=== PATIENT | male | born 1965 | race Caucasian/White ===

== ENCOUNTER 2018-03-24 09:47 | Day surgery (SDC) | payer OTHER ==
[2018-03-22 09:05] VITALS: BMI 39.0
[~2018-03-24] VITALS: Ht 180.3 cm; Wt 129.1 kg
[~2018-03-24 09:47] MED LIST: ALPR-411 PO; ALPR1TAB3 PO; AMLO5TAB3 PO; APPLTAB PO; ATOR10TA82 PO; BENA-4 PO; BENZ0.5T2 PO; BUPR100T8 PO; CEFAZOLIN 2000MG IV PUSH 15 ML IV SCH; CITA20TA4 PO; DEXAMETHASONE SOD INJ 4 MG/ML VIAL ONE; EMPA1TAB PO; EpHEDrine SULFATE 50MG/5ML SYR ONE; FENTANYL CITRATE INJ 50 MCG/1 ML 2 ML VIAL ONE; HYDR25CA PO; LACTATED RINGER'S 1000ML 1,000 ML IV SCH; LIDOCAINE HCL 2% 2 ML VIAL (20MG/ML) ONE; METF-384 PO; MIDAZOLAM HCL 1 MG/ML 2ML VIAL ONE; MULT-506 PO; ONDANSETRON INJ 2 MG/ML 2 ML VIAL ONE; PHENYLEPHRINE 100MCG/ML 5ML SYR ONE; PROPOFOL IV EMULSION 10 MG/ML 20 ML VIAL ONE; SITA100T3 PO; ZIPR20CA PO; ZIPR60CA PO
[2018-03-24 10:55] VITALS: BP 145/85; PULSE 74; TEMP 36.6; O2SAT 95; Ht 180.3 cm; Wt 129.1 kg
--- NOTE | 2018-03-24 12:17 | History & Physical Bridge Note ---
H&P Re-Evaluation Bridge Note: I have examined the patient, reviewed the History & Physical and in the interval since the performance of the History & Physical I have noted the following changes of clinical significance: No changes noted
[2018-03-24] MEDS ORDERED: BUPIVACAINE 0.25% 30 ML VIAL ONE (12:18)
[2018-03-24] MEDS ORDERED: GLYCOPYRROLATE INJ 0.2 MG/ML VIAL ONE (13:16)
[2018-03-24] MEDS ORDERED: ROCURONIUM BROMIDE 10 MG/ML 5 ML VIAL ONE (13:16)
[2018-03-24] MEDS ORDERED: NEOSTIGMINE METHYLSULFATE 5 MG/5 ML SYR ONE (13:16)
[2018-03-24] MEDS ORDERED: KETOROLAC TROMETHAMINE 30 MG/ML VIAL ONE (13:16)
--- NOTE | 2018-03-24 13:58 | [facility] Post Operative Brief Note ---
Immediate Operative Summary Operative Date Mar 24, 2018. Pre-Operative Diagnosis Testicular Mass, Left side Post-Operative Diagnosis Left Testicular mass Procedure(s) Performed Left Radical Orchiectomy, Inguinal approach Surgeon Dr. Augustin Schroeder Control Engineer Surgeon(s) none Estimated Blood Loss 10mL Findings Consistent with Post-Op Diagnosis Fluids (cc crystalloids) 1200 cc Specimens A. Left testicle and cord Drains None Anesthesia Type General Complication(s) none Disposition Accompanied Pt To Recover: yes Disposition: Recovery Room / PACU
[2018-03-24] MEDS ORDERED: CEPH500C2 PO (14:06)
[2018-03-24] MEDS ORDERED: DOCU100C31 PO (14:06)
[2018-03-24] MEDS ORDERED: OXYC-57 PO (14:06)
--- NOTE | 2018-03-24 14:07 | Discharge Instructions ---
Discharge Instructions Date of Service Mar 24, 2018. Admission Reason for Admission: Left Testicular Mass Discharge Discharge Diagnosis / Problem: Left testicular mass s/p left radical orchiectomy Discharge Goals Goal(s): Improve disease control, Diagnostic testing, Therapeutic intervention Activity Recommendations Activity Limitations: as noted below Lifting Limitations: no more than 25 pounds (x 2 weeks) Exercise/Sports Limitations: rest today, gradually increase as tolerated (x 2- 3 weeks) Shower/Bathe: tomorrow (no tub bath x 1 week) Driving or Machine Use: resume 1 day after discharge . Instructions / Follow-Up Instructions / Follow-Up As scheduled in office for pathology review Current Hospital Diet Patient's current hospital diet: Discharge Diet Recommended Diet: Regular Diet Procedures Procedures Performed: Left Radical Orchiectomy, Inguinal approach Pending Studies Studies pending at discharge: yes List of pending studies: Pathology report Medical Emergencies . Who to Call and When: Medical Emergencies: If at any time you feel your situation is an emergency, please call 911 immediately. . Non-Emergent Contact Non-Emergency issues call your: Urologist Call Non-Emergent contact if: you have a fever, temperature is above 101, your pain is not controlled, your pain is worsening, your pain is unusual for you, your pain is concerning you, you have any medication questions . . "Provider Documentation" section prepared by Augustin Schroeder. . [place] Drug Monitoring Program Search Results: patient reviewed within database, no issues identified
[2018-03-24] MEDS ORDERED: ATROPINE SULFATE 0.1 MG/ML 5ML SYR IV PRN (14:15)
[2018-03-24] MEDS ORDERED: OXYCODONE/ACETAMINOPHEN 5-325 TAB PO PRN ×2 (14:15)
[2018-03-24] MEDS ORDERED: FENTANYL CITRATE INJ 50 MCG/1 ML 2 ML VIAL IV PRN (14:15)
[2018-03-24] MEDS ORDERED: ONDANSETRON INJ 2 MG/ML 2 ML VIAL IV PRN (14:15)
[2018-03-24] MEDS ORDERED: LABETALOL HCL IV 5 MG/ML 20ML IV PRN (14:15)
[2018-03-24 14:48] VITALS: BP 158/92; PULSE 68; TEMP 37; O2SAT 96
--- NOTE | 2018-03-24 15:02 | Anesthesiology Progress Note ---
Anesthesia Post Op Note Date & Time Mar 24, 2018 at 15:02 Vital Signs Pain Intensity: 2 Vital Signs Past 12 Hours Date Time Temp Pulse Resp B/P (MAP) Pulse Ox O2 Delivery O2 Flow Rate FiO2 03/24/18 14:38 69 15 03/24/18 14:38 68 15 93 03/24/18 14:37 153/92 03/24/18 14:34 37.0 67 16 153/92 (107) 99 Room Air Oxymask 03/24/18 14:33 68 14 03/24/18 14:33 67 14 94 03/24/18 14:32 150/89 03/24/18 14:30 70 17 03/24/18 14:30 70 17 94 03/24/18 14:29 69 17 91 03/24/18 14:29 68 17 03/24/18 14:27 152/80 03/24/18 14:24 74 17 03/24/18 14:24 74 17 96 03/24/18 14:23 73 17 03/24/18 14:23 73 17 94 03/24/18 14:22 76 23 03/24/18 14:22 75 23 160/75 95 03/24/18 14:17 77 27 141/89 99 03/24/18 14:17 77 27 03/24/18 14:13 143/ 03/24/18 14:12 80 31 03/24/18 14:12 80 31 99 03/24/18 14:10 139/104 03/24/18 14:07 83 18 135/112 100 03/24/18 14:07 83 18 03/24/18 14:04 168/79 03/24/18 14:02 36.9 87 16 168/79 (97) 99 Oxymask 10 03/24/18 14:02 77 13 03/24/18 14:02 13 03/24/18 10:55 36.6 74 18 145/85 (105) 95 Room Air Notes Mental Status: alert / awake / arousable, participated in evaluation Pt Amnestic to Procedure: Yes Nausea / Vomiting: adequately controlled Pain: adequately controlled Airway Patency, RR, SpO2: stable & adequate BP & HR: stable & adequate Hydration State: stable & adequate Anesthetic Complications: no major complications apparent
[2018-03-24 15:20] VITALS: BP 167/87; PULSE 63; TEMP 36.9; O2SAT 100
--- NOTE | 2018-03-24 19:00 | OPERATIVE REPORT ---
DATE OF OPERATION: 03/24/2018 PREOPERATIVE DIAGNOSIS: Left-sided vascular intratesticular mass. POSTOPERATIVE DIAGNOSIS: Left-sided vascular intratesticular mass. PROCEDURE: Left-sided radical orchiectomy with inguinal approach. SURGEON: Augustin Schroeder M.D. GAS SUBSTATION OPERATOR: None. ANESTHESIA: General anesthesia with endotracheal intubation plus local. COMPLICATIONS: None. ESTIMATED BLOOD LOSS: 10 mL. IV FLUIDS: 1200 mL crystalloid. DRAINS LEFT IN PLACE: None. SPECIMENS SENT TO PATHOLOGY: Left testis plus cord. FINDINGS: Solid intratesticular mass removed intact. No scrotal skin perforation, excellent hemostasis. BRIEF HISTORY: Mr. Lynn is a pleasant 52-year-old male who has been seen as an outpatient acutely for a new and growing left-sided palpable testicular mass found to be solid and intratesticular on scrotal ultrasound. Please see H and P for further details. This finding is quite suspicious for testicular malignancy and is here today for radical orchiectomy. Intravenous cephalosporins are provided for antibiotic coverage and SCDs used for DVT prophylaxis throughout the case. DESCRIPTION OF PROCEDURE: The patient was properly identified and brought into the operative suite after identification of appropriate consent on the chart. General anesthesia with endotracheal intubation was initiated and the patient was prepped and draped in the standard fashion for this procedure. multimedia manager-out procedure was followed. The patient was placed in some Trendelenburg due to his body habitus and the incision was made over the inguinal canal on the left hand side after initiation of local anesthesia at the skin level. This was brought down through the subcutaneous fat and Elena's fascia with fascia of the external oblique. This was divided and opened along fascial planes to allow for access to the inguinal canal. The ilioinguinal nerve was not identified despite searching for it at this stage of the case. A spermatic cord was circumscribed using a right angle and the surgeon's finger and then double looped with a quarter inch [place] drain under tension for hemostasis. The scrotum was invaginated and the testis was delivered through the inguinal canal with the gubernacular fibers being taken using judicious Bovie cautery to avoid any skin injury. After this was complete, some fatty lipoma of the cord was identified and dissected bluntly free away from the cord. Cord was dissected free up to the level of the internal inguinal ring. Palpable solid testicular mass was appreciated as noted preoperatively and on preoperative ultrasound. Cord block was placed at the level of the deep ring and the cord was bifurcated and then clamped using heavy clamps. This was divided at the internal ring and sent for pathologic analysis. The 0 Vicryl suture ligatures and free ties were used to control the stump of the cord. One long suture was left in place and the proximal cord was placed within the confines of the abdominal cavity. Generous irrigation of the wound was performed. No significant hernia defect was appreciated. Fascia of the external oblique was closed using a #1 Vicryl suture in a running fashion. Subcutaneous tissues were closed using 3-0 Vicryl with a 4-0 Monocryl and Dermabond at the level of the skin. Excellent hemostasis was appreciated both in the inguinal canal and within the inverted scrotum prior to completion of closure. Scrotal support with fluffs was placed and anesthesia was reversed. The patient was transferred to recovery room in stable condition. FOLLOWUP CARE: The patient will be discharged home with outpatient followup for pathology discussion as previously scheduled. Prescription for Colace, Percocet, and a short course of Keflex is provided for postoperative coverage. The patient was instructed to contact our service should he note any fevers, chills, nausea, vomiting or other significant difficulties in the postoperative period. No heavy activity until cleared by our service. I attest to the content of the Intraoperative Record and any orders documented therein. Any exception s are noted below.
== END 2018-03-24 15:37 | disposition home or self-care (01) ==
LOC: C.ACU 09:47
PROVIDERS: ATTEND Urology
DX: C62.92 Malignant neoplasm of left testis, unspecified whether descended or undescended (principal); Z87.891 Personal history of nicotine dependence; Z79.84 Long term (current) use of oral hypoglycemic drugs